=== PATIENT | female | born 1975 | race Caucasian/White ===

== ENCOUNTER 2020-06-29 12:04 | Emergency (ER) | payer BC ==
--- NOTE | 2020-06-29 13:18 | EDM.PDOC ---
ED HPI GENERAL MEDICAL PROBLEM - General Chief Complaint: Lower Extremity Injury/Pain Stated Complaint: FELL 2 DAYS AGO/HURT LEG Time Seen by Provider: 06/29/20 12:45 Source of Information: Reports: Patient, Family History Limitations: Reports: No Limitations - History of Present Illness INITIAL COMMENTS - FREE TEXT/NARRATIVE: 45-year-old female who stumbled forward 2 days ago falling on her knees, right hand and face got up and has been limping around since then but still is having significant pain in her left knee. She is having trouble straightening her leg out completely when she walks she has to walk with her knee slightly flexed. No significant swelling or deformity. Her left knee is her only concern at this time. Onset: Sudden Duration: Day(s): (2 days ago) Location: Reports: Lower Extremity, Left Quality: Reports: Sharp Improves with: Reports: Rest, Other (Slight flexion is also helpful) Worsens with: Reports: Other (Weightbearing is very painful, also complete extension), Movement Left Knee Pain Score (Numeric/FACES): 0 - Related Data Allergies Allergy/AdvReac Type Severity Reaction Status Date / Time bacitracin Allergy Hives Verified 06/29/20 12:30 [From Neosporin ([id number])] neomycin Allergy Hives Verified 06/29/20 12:30 [From Neosporin ([id number])] polymyxin B Allergy Hives Verified 06/29/20 12:30 [From Neosporin ([id number])] tramadol Allergy Vomiting Verified 06/29/20 12:30 Home Meds: Home Meds *Iron 65 mg PO BID 06/29/20 [History] Apixaban [Eliquis] 2.5 mg PO BID 06/29/20 [History] Chlorthalidone 25 mg PO DAILY 06/29/20 [History] Cholecalciferol (Vitamin D3) [Vitamin D3] 1,000 unit PO DAILY 06/29/20 [History] Gabapentin [Neurontin] 300 mg PO TID 06/29/20 [History] Metoprolol Succinate 100 mg PO DAILY 06/29/20 [History] Multivitamin 1 tab PO DAILY 06/29/20 [History] Vitamin E 400 mg PO DAILY 06/29/20 [History] Past Medical History HEENT History: Reports: Impaired Vision Respiratory History: Reports: PE, Other (See Below) Other Respiratory History: PE x 2 (1 in 2015, 1 in 2016). [employer]LY[employer] History: Reports: Musculoskeletal History: Reports: Fracture Neurological History: Reports: Migraines Oncologic (Cancer) History: Reports: Other (See Below) Other Oncologic History: melanoma. Brain tumor removed (not cancerous but received chemo and radiation). - Infectious Disease History Infectious Disease History: Reports: Chicken Pox - Past Surgical History Female Surgical History: Reports: Hysterectomy, Oophorectomy Neurological Surgical History: Reports: Intracranial, Other (See Below) Other Neurological Surgeries/Procedures: brain tumor removed. Social & Family History - Tobacco Use Tobacco Use Status *Q: Never Tobacco User - Caffeine Use Caffeine Use: Reports: Coffee - Recreational Drug Use Recreational Drug Use: No Review of Systems - Review of Systems Review Of Systems: See Below Constitutional: Denies: Fever Eyes: Reports: No Symptoms Respiratory: Reports: No Symptoms Cardiovascular: Reports: No Symptoms GI/Abdominal: Reports: No Symptoms Skin: Reports: Other (History of melanoma). 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 On palpation she is tender over the medial tibial plateau, with increased pain with extension passively. Some pain to palpation around the patella as well) Neurological: Alert, Oriented Psychiatric: Normal Affect, Normal Mood Skin Exam: Warm, Dry Course - Vital Signs Last Recorded V/S: Last Vital Signs Temp 97.9 F 06/29/20 13:05 Pulse 70 06/29/20 13:05 Resp 14 06/29/20 13:05 BP 136/77 06/29/20 13:05 Pulse Ox 96 06/29/20 13:05 - Orders/Labs/Meds Orders: Active Orders 24 hr Category Date Time Status Consult to Orthopedic Clinic [CONS] Routine Cons 06/29/20 13:31 Active Knee 3V Rt [CR] Stat Exams 06/29/20 13:00 Taken DME for Discharge [COMM] Stat Oth 06/29/20 13:29 Ordered - Re-Assessments/Exams Free Text/Narrative Re-Assessment/Exam: 06/29/20 13:30 Knee x-ray shows no acute fracture or injury, a 4 inch Dex wrap was applied to the knee and she was fitted with crutches. She can increase activity through the weekend if not improving by next week rechecking with Dr. Benítez in the clinic may be helpful. She was also given a copy of the x-ray in case she wants to recheck in a few weeks in [place] when she is home. Departure - Departure Time of Disposition: 14:39 Disposition: Home, Self-Care 01 Clinical Impression: Contusion of left knee Qualifiers: Encounter type: initial encounter Qualified Code(s): S80.02XA - Contusion of left knee, initial encounter - Discharge Information Instructions: Contusion, [id number] Referrals: PCP,None [Primary Care Provider] - Forms: ED Department Discharge Care Plan Goals: Wrap leg for comfort, increase activity as tolerated and use crutches through the weekend to assist with ambulation. Consider calling Dr. Beníetz on Thursday morning to make an appointment if not improving satisfactorily. Sepsis Event Note (ED) - Evaluation Sepsis Screening Result: No Definite Risk - Focused Exam Vital Signs: Vital Signs Temp Pulse Resp BP Pulse Ox 06/29/20 13:05 97.9 F 70 14 136/77 96 - My Orders Last 24 Hours: My Active Orders 06/29/20 13:00 Knee 3V Rt [CR] Stat 06/29/20 13:29 DME for Discharge [COMM] Stat 06/29/20 13:31 Consult to Orthopedic Clinic [CONS] Routine - Assessment/Plan Last 24 Hours: My Active Orders 06/29/20 13:00 Knee 3V Rt [CR] Stat 06/29/20 13:29 DME for Discharge [COMM] Stat 06/29/20 13:31 Consult to Orthopedic Clinic [CONS] Routine
--- NOTE | 2020-07-02 09:32 | CR ---
Knee 3V Rt CLINICAL HISTORY: Fall, pain FINDINGS: There are no osseous lesions. There is some patellar spurring. There appears to be a small joint effusion. There is a tiny ossific density off the lateral temporal condyle. This likely ligamentous and may represent a previous lateral collateral ligament injury. Acute injury is felt less likely but not excluded Impression: Mild degenerative spurring Small ossific density near the insertion site of the lateral collateral ligament may be from previous injury. Acute injury is felt less likely
== END 2020-06-29 14:15 | disposition home or self-care (01) ==
LOC: JP.ED 12:04
DX: S80.02XA Contusion of left knee, initial encounter (principal); Z86.711 Personal history of pulmonary embolism; Z79.01 Long term (current) use of anticoagulants; Z79.899 Other long term (current) drug therapy; Z88.1 Allergy status to other antibiotic agents; Z88.5 Allergy status to narcotic agent; W01.0XXA Fall on same level from slipping, tripping and stumbling without subsequent striking against object, initial encounter
CPT/HCPCS: 73562-26-RT; 73562-RT; 99282; 99283

== ENCOUNTER 2022-07-14 19:21 | Emergency (ER) | payer OTHER, BC ==
[2022-07-14] MEDS ORDERED: Lactated Ringers 1,000 ML IV ONE (19:44)
[2022-07-14] MEDS ORDERED: fentaNYL 100 MCG/2 ML SDV IVPUSH ONE (19:44)
[2022-07-14] MEDS ORDERED: Sodium Chloride 0.9% 10 ML Syringe FLUSH PRN (19:44)
[2022-07-14] MEDS ORDERED: Iopamidol 612 MG/ML 100 ML Bottle IV SCH (19:45)
[2022-07-14] MEDS ORDERED: Sodium Chloride 0.9% 50 ML IV SCH (19:45)
[2022-07-14 19:51] LABS: BASOPHILS ABSOLUTE AUTO 0.03 K/uL (0.00-0.10); BASOPHILS PERCENT AUTO 0.6 % (0.1-1.3); EOSINOPHILS ABSOLUTE AUTO 0.14 K/uL (0.00-0.40); EOSINOPHILS PERCENT AUTO 2.8 % (0.0-5.4); HEMOGLOBIN 13.5 g/dL (11.2-15.5); IMMATURE GRAN PERCENT AUTO 0.2 % (0.0-0.7); LYMPHOCYTES ABSOLUTE AUTO 1.65 K/uL (0.8-3.3); LYMPHOCYTES PERCENT AUTO 32.6 % (11.4-47.7); MEAN CORPUSCULAR HEMOGLOBIN 35.6 pg (31.6-35.5); MEAN CORPUSCULAR HGB CONC 36.5 g/dL (31.6-35.5); MEAN CORPUSCULAR VOLUME 97.6 fL (81.4-99.0); MONOCYTES ABSOLUTE AUTO 0.43 K/uL (0.20-0.90); MONOCYTES PERCENT AUTO 8.5 % (3.3-12.6); NEUTROPHILS PERCENT AUTO 55.3 % (40.0-78.1); PLATELET COUNT,PLT 250 K/uL (130-375); RED BLOOD CELL COUNT 3.79 M/uL (3.77-5.24); WHITE BLOOD CELL COUNT,WBC 5.1 K/uL (3.2-11.0)
[2022-07-14 19:52] LABS: IMMATURE GRAN ABSOLUTE AUTO 0.01 K/uL (0.00-0.23)
[2022-07-14 20:06] LABS: BLOOD UREA NITROGEN,BUN 13 mg/dL (7-18); CALCIUM 8.9 mg/dL (8.5-10.1); CARBON DIOXIDE,CO2 33 mmol/L (21-32); CHLORIDE,CL 99 mmol/L (100-108); CREATININE 0.8 mg/dL (0.6-1.0); ESTIMATED GFR 91 mL/min (>60); GLUCOSE RANDOM 134 mg/dL (74-106)
[2022-07-14 20:10] LABS: ANION GAP 9.5 mmol/L (5.0-14.0); SODIUM,NA 139 mmol/L (140-148)
[2022-07-14 20:11] LABS: POTASSIUM,K 2.5 mmol/L (3.6-5.2)
[2022-07-14] MEDS ORDERED: Potassium Chloride 20 MEQ Tab.ER PO ONE (20:12)
[2022-07-14] MEDS ORDERED: Potassium Chloride 20 MEQ in Premix Bag 1 BAG IV ONE (20:12)
== END 2022-07-14 23:20 | disposition home or self-care (01) ==
LOC: JP.ED 19:21
DX: S09.90XA Unspecified injury of head, initial encounter (principal); S40.011A Contusion of right shoulder, initial encounter; Z86.711 Personal history of pulmonary embolism; Z88.1 Allergy status to other antibiotic agents; Z88.5 Allergy status to narcotic agent; Z79.899 Other long term (current) drug therapy; Z79.01 Long term (current) use of anticoagulants; V86.95XA Unspecified occupant of 3- or 4- wheeled all-terrain vehicle (ATV) injured in nontraffic accident, initial encounter; Y92.410 Unspecified street and highway as the place of occurrence of the external cause
CPT/HCPCS: 36415; 70450; 71260; 72125; 76377; 80048; 85025; 96365; 96366; 96375; 99284; A9270; J3010; J3480; J3490; J7120; Q9967